=== PATIENT | male | born 1990 | race Caucasian/White ===

== ENCOUNTER 2020-06-27 00:52 | Emergency (ER) | payer OTHER ==
[~2020-06-27] VITALS: Ht 180.3 cm; Wt 77.1 kg
[2020-06-27] MEDS ORDERED: PEPCID40 MG PO (04:12)
[2020-06-27] MEDS ORDERED: ZOFRAN8 MG PO (04:12)
== END 2020-06-27 04:40 | disposition home or self-care (01) ==
LOC: ER 00:52
DX: K21.9 Gastro-esophageal reflux disease without esophagitis (principal); R10.13 Epigastric pain